=== PATIENT | female | born 1990 | race Caucasian/White ===

== ENCOUNTER 2021-01-19 18:46 | Emergency (ER) | payer BC, SELFPAY ==
[2021-01-19 18:49] VITALS: BP 133/94; PULSE 116; RESP 18; TEMP 36.1; O2SAT 95; BMI 29.2
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
[2021-01-19 19:52] VITALS: RESP 16
== END 2021-01-19 19:53 | disposition home or self-care (01) ==
PROVIDERS: Emergency Provider Emergency Medicine; PCP Nurse Practitioner Primary Care
DX: S39.012A Strain of muscle, fascia and tendon of lower back, initial encounter (principal); V89.2XXA Person injured in unspecified motor-vehicle accident, traffic, initial encounter; Y93.89 Activity, other specified; Y92.410 Unspecified street and highway as the place of occurrence of the external cause; Y99.9 Unspecified external cause status
CPT/HCPCS: 99282

== ENCOUNTER 2025-04-09 03:34 | Emergency (ER) | payer BC, SELFPAY ==
[2025-04-09 03:35] VITALS: BP 128/90; PULSE 88; RESP 18; TEMP 36.5; O2SAT 100; BMI 28.9
--- NOTE | 2025-04-09 03:41 | RAD_ITS ---
PROCEDURE: ANKLE MIN 3 VIEWS 04/09/2025 REASON FOR EXAM: INJURY TECHNIQUE: Procedure Code: RADANK Modality: DX Procedure: ANKLE MIN 3 VIEWS Laterality: Left COMPARISON: None. FINDINGS: Acute displaced trimalleolar fractures. Overlying soft tissue edema and swelling. Normal tibiotalar articulation and ankle mortise. Normal visualized talus. Normal visualized calcaneus. The visualized subtalar, talonavicular, calcaneocuboid and tarsal articulations are normal. RAD/Ankle min 3 Views IMPRESSION: Acute displaced trimalleolar fractures. Overlying soft tissue edema and swelling. Reading Location: [facility]
--- NOTE | 2025-04-09 04:14 | RAD_ITS ---
PROCEDURE: TIBIA FIBULA 2 VIEWS 04/09/2025 REASON FOR EXAM: PAIN TECHNIQUE: Procedure Code: RADTF Modality: DX Procedure: TIBIA FIBULA 2 VIEWS Laterality: Left. COMPARISON: None. FINDINGS: Acute displaced trimalleolar fractures. Overlying soft tissue edema and swelling. Normal remaining visualized tibia. Normal remaining visualized fibula. RAD/Tibia & Fibula 2 Views IMPRESSION: Acute displaced trimalleolar fractures. Overlying soft tissue edema and swelling. Reading Location: [facility]
--- NOTE | 2025-04-09 05:30 | EX.ED.DYSGE1 ---
HPI History of Present Illness Chief Complaint: Lower Extremity Injury Narrative Narrative: Patient is a 34-year-old female with past medical history of depression. They are from [place] and she has been up here visiting family. She states that this morning she awoke and was walking through the children's bedroom and as she was stepping over one of the children lying on the lower trundle bed she twisted and injured her left ankle. She states she had immediate pain and swelling and cannot bear weight. She denies any other injury. She denies any history of Le disorder or blood thinner use. However with concern for underlying fracture she presents for evaluation [facility] Medical History (Updated 04/10/25 @ 08:[address] Maikel Guillermo, DO) Depression Home Medications ?Medication ?Instructions ?Recorded ?Last Taken ?Type aripiprazole 20 mg tablet 20 mg PO DAILY 04/09/25 Unknown History bupropion HCl 150 mg 24 hr tablet, 150 mg PO DAILY 04/09/25 Unknown History extended release lamotrigine 25 mg tablet 25 mg PO DAILY 04/09/25 Unknown History ondansetron 4 mg disintegrating 4 mg PO TID PRN nausea and 04/09/25 Unknown Rx tablet vomiting #21 tabs oxycodone-acetaminophen 5 mg-325 1 tab PO Q6H PRN pain 5 days #20 04/09/25 Unknown Rx mg tablet (Endocet) tabs propranolol 60 mg capsule,24 60 mg PO DAILY 04/09/25 Unknown History hr,extended release sertraline 100 mg tablet 100 mg PO DAILY 04/09/25 Unknown History sertraline 50 mg tablet 50 mg PO DAILY 04/09/25 Unknown History Allergy/AdvReac Type Severity Reaction Status Date / Time ibuprofen Allergy Upset Verified 04/09/25 03:35 Stomach Social History Smoking Status: Never smoker [facility] ED Constitutional Constitutional ED: Denies chills or fever(s) Eyes Eyes: Denies blurry vision or change in vision ENT ENT ED: Denies sore throat Cardiovascular Cardiovascular: Reports other Details: Negative syncope ; Denies chest pain Respiratory/Chest Respiratory/Chest: Denies cough or dyspnea Gastrointestinal Gastrointestinal: Denies abdominal pain, diarrhea, nausea or vomiting Musculoskeletal Musculoskeletal: Reports other Details: Positive left ankle pain ; Denies back pain or neck pain Integumentary Denies Abrasions Neurologic Neurologic: Denies headache(s) or paresthesias Hematologic/Lymphatic Hematologic/Lymphatic: Denies easy bleeding or easy bruising EXAM Physical Exam Const Vital Signs: 04/09/25 03:35 Temperature 97.7 F L Temperature Source Oral Pulse Rate 88 Respiratory Rate 18 Blood Pressure 128/90 H Blood Pressure Mean 102 Pulse Ox 100 Positive well nourished and well developed General Appearance ED: well developed; Negative for pallor HEENT HEENT Narrative: Normocephalic atraumatic Eyes PERRL and EOMs intact bilaterally Neck supple Neck Narrative: No bony deformity or step-off of the cervical spine No midline tenderness to palpation Resp normal respiratory effort and clear to auscultation bilaterally Cardio regular rate and regular rhythm Back/Spine Back/Spine Narrative: No bony deformity or step-off of the thoracic or lumbar spine No midline tenderness to palpation Extremity Extremity Narrative: Left lower extremity is neurovascularly intact. There is diffuse soft tissue swelling along the distal third of the larios extending to the ankle. Active and passive range of motion is severely limited secondary to pain. Ligamentous stress testing reveals laxity concerning for fracture versus ligamentous rupture. No crepitance noted. No pain on palpation of the proximal tibia. All compartments are soft and compressible going against compartment syndrome Remainder of the exam is normal Neuro oriented x3, CN's II-XII intact bilaterally and no sensory deficits noted Sensorium / Orientation: alert Psych mental status grossly normal Skin no rashes or lesions noted Skin Narrative: Soft tissue swelling to the left lower leg as documented above Capillary refill remains less than 3 seconds General Skin Exam: Negative for jaundice or pallor MDM MDM MDM Narrative Medical decision making narrative: Patient arrived to the ER with stable vitals. She reported mechanical fall and therefore I felt no need for cardiac or syncope workup. She did not strike her head or have loss of consciousness she is not on a blood thinner or have bleeding disorder and therefore I have low concern for subarachnoid or subdural hemorrhage and feel no need for head CT. With history and exam indicating injury to the left lower tibia and fibula and concern for fracture x-rays of the lower leg were ordered. X-rays confirmed an acute trimalleolar fracture. However she is closed and neurovascularly intact. I did discuss case with orthopedic surgeon on-call Dr. Choi. He states at this time as she is closed and neurovascularly intact that there is no need for emergent surgery. He states that as they are from [place] if she wants to have this taken care of as an outpatient that is also acceptable. He recommends that she take a baby aspirin twice a day and stop every 1-2 hours while traveling to help prevent chance for blood clot. I informed the patient that we will need to stabilize the fracture with a splint but that the orthopedic surgeon feels outpatient treatment is appropriate for the fracture and believes that if she wants to have it done at her home state that is acceptable. They state they would prefer to have the surgery in [place]. She was placed in a Ortho-Glass stirrup and posterior tibial splint for stabilization as documented below. Therefore this time as the fracture has been stabilized she did not compartment syndrome or signs of open fracture or neurovascular compromise she is otherwise safe for discharge The patient had a Ortho-Glass posterior tibial and stirrup splint placed to the left lower leg. The splints fit the fracture fragments with good approximation and provide proper stabilization. After application capillary refill remained less than 3 seconds. Patient tolerated the procedure well without complication. History & Record Review Discussion w/independent historian: Patient and Significant other Radiography Diagnostic Testing: Clinical Impression(s) from Imaging Studies Ankle X-Ray 04/09/25 03:41 IMPRESSION: Acute displaced trimalleolar fractures. Overlying soft tissue edema and swelling. Reading Location: [id number] Tibia/Fibula X-Ray 04/09/25 04:14 IMPRESSION: Acute displaced trimalleolar fractures. Overlying soft tissue edema and swelling. Reading Location: [id number] Left ankle x-ray as interpreted by the emergency medicine physician reveals a acute displaced trimalleolar fracture Left tibia/fibula x-ray as interpreted by the emergency medicine physician reveals a normal proximal tibia and fibula with redemonstration of the acute displaced trimalleolar fracture Discharge Plan Triage Chief Complaint: Lower Extremity Injury ED Provider: Maikel Guillermo Dx/Rx/DC Orders Clinical Impression: Closed trimalleolar fracture, Depression, Accidental fall Instructions: Ankle Fx ORIF Surg, ED Fiberglass Splint Care Prescriptions: New oxycodone-acetaminophen [Endocet] 5-325 mg tablet 1 tab PO Q6H PRN (Reason: pain) 5 Days Qty: 20 0RF ondansetron 4 mg tablet,disintegrating 4 mg PO TID PRN (Reason: nausea and vomiting) Qty: 21 0RF No Action propranolol 60 mg capsule,extended release 24 hr 60 mg PO DAILY sertraline 100 mg tablet 100 mg PO DAILY lamotrigine 25 mg tablet 25 mg PO DAILY sertraline 50 mg tablet 50 mg PO DAILY aripiprazole 20 mg tablet 20 mg PO DAILY bupropion HCl 150 mg tablet extended release 24 hr 150 mg PO DAILY Primary Care Provider: DARREN MORA Referrals: DARREN MORA [Other] Activity Restrictions/Additional Instructions: Your x-ray shows you have a trimalleolar fracture. This will most likely require surgery to fix. Please follow-up with orthopedic surgery when you return home to discuss surgical fixation. Please take a baby aspirin twice a day in order to help prevent blood clot. Make sure you are up and moving every 1-2 hours also to help prevent clot. Return to the ER should you have any further concerns Print Language: Occitan Disposition Disposition: Home, Self Care Discharge Date/Time: 04/09/25 06:21
[2025-04-09 05:50] VITALS: BP 112/63; PULSE 74; RESP 18; TEMP 36.7; O2SAT 100
== END 2025-04-09 06:21 | disposition home or self-care (01) ==
PROVIDERS: Emergency Provider Emergency Medicine; Visit Provider Emergency Medicine
DX: S82.852A Displaced trimalleolar fracture of left lower leg, initial encounter for closed fracture (principal); F32.A Depression, unspecified; Z79.899 Other long term (current) drug therapy; X58.XXXA Exposure to other specified factors, initial encounter
CPT/HCPCS: 73590; 73610; 96372; 99283